=== PATIENT | male | born 1995 | race Hispanic/Latino ===

== ENCOUNTER 2023-02-19 07:17 | Emergency (ER) | payer SELFPAY ==
[2023-02-19 08:00] LABS: Hematocrit 47.1 % (39.6-49.0); Lymphocytes % 27.1 % (15.3-44.8); MCV 87.5 fL (80-100); MPV 10.1 fL (7.6-11.3); Platelets 230 thou/uL (152-406); RBC Red Blood Cell Count 5.38 M/uL (4.33-5.43)
[2023-02-19] MEDS ORDERED: NA CHLORIDE 0.9% 1,000 ML ONE (08:09)
[2023-02-19] MEDS ORDERED: KETOROLAC 30 MG/ML INJ ONE (08:09)
--- NOTE | 2023-02-19 08:13 | RAD REPORT ---
EXAM DESCRIPTION: CT - Abdomen Pelvis Wo Contrast - 02/19/2023 8:00 am CLINICAL HISTORY: Abdominal pain. Right flank pain COMPARISON: None TECHNIQUE: Computed axial tomography of the abdomen and pelvis was obtained. IV and oral contrast we re not requested. All CT scans are performed using dose optimization technique as appropriate and may include automated exposure control or mA/KV adjustment according to patient size. FINDINGS: The evaluation of solid organs, vessels and bowel is limited secondary to the lack of con trast administration. Cholecystectomy Tiny right renal calculus. Moderate right hydronephrosis. The proximal and mid right ureter are dilat ed. Mild periureteral stranding. Distal right ureter normal caliber. A ureteral calculus is not visua lized Fatty liver. The Spleen, pancreas, adrenals and left kidney appear grossly normal. The appendix is normal. There is no evidence of diverticulitis. Small umbilical hernia IMPRESSION: Tiny nonobstructing right renal calculus Moderate right hydronephrosis and dilatation of the proximal and mid right ureter. A ureteral calculu s is not visualized. Patient may have had a recently passed calculus. A ureteral lesion is another co nsideration but probably less likely. If the patient's symptoms do not resolve then a retrograde pyel ogram may be helpful
[2023-02-19 08:32] LABS: Bilirubin Total 0.3 mg/dL (0.2-1.0); Potassium 4.1 mEq/L (3.5-5.1)
--- NOTE | 2023-02-19 08:44 | ER ---
Nurse's Notes [facility] Name: Sg Gaspar Age: 27 yrs Sex: Male : 1995 Arrival Date: 02/19/2023 Time: 07:17 Bed 6 Private MD: Diagnosis: Right flank pain, ureterolithiasis resolved, right hydronephrosis Presentation: 02/19 07:36 Chief complaint: Patient states: right low back pain radiating to RLQ x 2 days ago. Pt aa5 also reports vomiting, denies diarrhea, reports decreased urination. Coronavirus screen: vomiting. Ebola Screen: Patient denies travel to an Ebola-affected area in the 21 days before illness onset. Initial Sepsis Screen: Does the patient meet any 2 criteria? No. Patient's initial sepsis screen is negative. Does the patient have a suspected source of infection? No. Patient's initial sepsis screen is negative. Risk Assessment: Do you want to hurt yourself or someone else? Patient reports no desire to harm self or others. Onset of symptoms was February 2023. 07:36 Acuity: ANGIE 3 aa5 07:36 Method Of Arrival: Ambulatory aa5 Historical: - Allergies: 07:38 No Known Allergies; aa5 - PMHx: 07:38 None; aa5 - PSHx: 07:38 Cholecystectomy; aa5 - Immunization history:: Flu vaccine is up to date. - Social history:: Smoking status: Patient denies any tobacco usage or history of. Screenin:41 [facility] ED Fall Risk Assessment (Adult) History of falling in the last 3 months, rs5 including since admission No falls in past 3 months (0 pts) Confusion or Disorientation No (0 pts) Intoxicated or Sedated No (0 pts) Impaired Gait No (0 pts) Mobility Assist Device Used No (0 pt) Altered Elimination No (0 pt) Score/Fall Risk Level 0 - 2 = Low Risk Oriented to surroundings, Maintained a safe environment. Abuse screen: Denies threats or abuse. Nutritional screening: No deficits noted. Tuberculosis screening: No symptoms or risk factors identified. Assessment: 07:40 General: Appears in no apparent distress. comfortable, Behavior is calm, cooperative. rs5 Pain: Complains of pain in right flank Pain radiates to pelvis Pain currently is 8 out of 10 on a pain scale. Quality of pain is described as aching, sharp, Pain began 2-3 days ago. Is continuous, Noted to be grimacing. Neuro: Level of Consciousness is awake, alert, obeys commands, Oriented to person, place, time, situation. Cardiovascular: Heart tones S1 S2 present Rhythm is regular. 07:40 Respiratory: Airway is patent Respiratory effort is even, unlabored, Respiratory rs5 pattern is regular, symmetrical, Breath sounds are clear bilaterally. GI: Abdomen is round non-distended, Bowel sounds present X 4 quads. Abd is soft and non tender X 4 quads. : No signs and/or symptoms were reported regarding the genitourinary system. EENT: No signs and/or symptoms were reported regarding the EENT system. Derm: Skin is intact, Skin is dry, Skin is normal, Skin temperature is warm. Musculoskeletal: Range of motion: intact in all extremities. 08:15 Pain: Complains of pain in right flank Pain does not radiate. Pain currently is 2 out rs5 of 10 on a pain scale. Quality of pain is described as aching, Is continuous. 08:30 Pain: Complains of pain in right flank Pain does not radiate. Pain currently is 8 out rs5 of 10 on a pain scale. Quality of pain is described as aching, Provider notified pt is experiencing pain. 08:50 Reassessment: To bedside for med adm, provider at bedside. rs5 09:10 Reassessment: Patient and/or family updated on plan of care and expected duration. Pain rs5 level reassessed. Patient is alert, oriented x 3, equal unlabored respirations, skin warm/dry/pink. Patient denies pain at this time. Vital Signs: 07:36 BP 162 / 103; Pulse 74; Resp 18 S; Temp 97.7(TE); Pulse Ox 100% on R/A; Weight 81.65 kg aa5 (R); Height 5 ft. 0 in. (R); 07:45 BP 125 / 79; Pulse 70; Resp 17; Temp 97.8(O); Pulse Ox 99% on R/A; rs5 09:02 BP 130 / 82; Pulse 72; Resp 16; Temp 97.9(O); Pulse Ox 99% on R/A; rs5 07:36 Body Mass Index 35.15 (81.65 kg, 152.4 cm) aa5 ED Course: 07:20 Patient arrived in ED. im 07:30 Leonardo Rogers MD is Attending Physician. sp3 07:36 Arm band placed on. aa5 07:38 Triage completed. aa5 07:41 Patient has correct armband on for positive identification. Bed in low position. Side rs5 rails up X2. Adult w/ patient. 07:45 Juliann Parmar, ANGLE is Primary Nurse. kc6 08:00 Inserted saline lock: 20 gauge in right antecubital area, using aseptic technique. rs5 Blood collected. 08:01 CT Abd/Pelvis - Without Contrast In Process Unspecified. EDMS 08:11 Scar Veras, ANGLE is Primary Nurse. rs5 08:42 Freddy Estes MD is Referral Physician. sp3 09:01 No provider procedures requiring assistance completed. IV discontinued, intact, rs5 bleeding controlled, No redness/swelling at site. Pressure dressing applied. Administered Medications: 07:55 Drug: NS 0.9% IV 1000 ml IV at 1 bolus Per protocol; 1000 mL bolus Route: IV; Rate: 1 rs5 bolus; Site: right antecubital; 08:10 Follow up: Response: No adverse reaction rs5 07:55 Drug: TORadol - Ketorolac IVP 30 mg IVP once Route: IVP; Site: right antecubital; rs5 08:15 Follow up: Response: No adverse reaction; Pain is decreased rs5 08:51 Drug: HYDROmorphone IVP 1 mg IVP once Route: IVP; Site: right antecubital; rs5 09:10 Follow up: Response: No adverse reaction; Pain is decreased rs5 08:51 Drug: Ondansetron IVP 4 mg IVP once; over 2 minutes Route: IVP; Site: right antecubital;rs5 09:10 Follow up: Response: No adverse reaction rs5 Medication: 08:17 VIS not applicable for this client. rs5 Outcome: 08:43 Discharge ordered by . sp3 09:01 Discharged to home ambulatory, with family, rs5 09:01 Condition: stable 09:01 Discharge instructions given to patient, family, 09:08 Patient left the ED. rs5 Signatures: Dispatcher [employer] EDAL Zuri Jasmine RN RN aa5 Leonardo Rogers MD MD sp3 Juliann Parmar RN RN kc6 Scar Veras RN RN rs5 Pilar Naidu Corrections: (The following items were deleted from the chart) 08:08 07:36 BP 162 / 103; Pulse 74bpm; Resp 18bpm; Spontaneous; Pulse Ox 100% RA; Temp 97.7F aa5 Temporal; 81.65 kg Reported; Height 5 ft. 3 in. Reported; BMI: 31.8; aa5 08:16 08:12 General: Appears in no apparent distress. comfortable, Behavior is calm, rs5 cooperative, rs5 08:16 08:12 Pain: Complains of pain in right flank Pain radiates to pelvis Pain currently is rs5 8 out of 10 on a pain scale. Quality of pain is described as aching, sharp, Pain began 2-3 days ago. Is continuous, Noted to be grimacing, rs5 08:16 08:12 Neuro: Level of Consciousness is awake, alert, obeys commands, Oriented to rs5 person, place, time, situation, rs5 08:16 08:12 Cardiovascular: Heart tones S1 S2 present Rhythm is regular rs5 rs5 14:59 09:10 Reassessment: Patient and/or family updated on plan of care and expected rs5 duration. Pain level reassessed. Patient is alert, oriented x 3, equal unlabored respirations, skin warm/dry/pink. rs5
--- NOTE | 2023-02-19 08:44 | EDPHYS ---
Physician Documentation [facility] Name: Sg Gaspar Age: 27 yrs Sex: Male : 1995 Arrival Date: 02/19/2023 Time: 07:17 Bed 6 Private MD: ED Physician Leonardo Rogers HPI: 02/19 07:53 27-year-old male with a history of kidney stones with last one being 2 years ago now sp3 presents with right-sided flank pain x24 hours without any other symptoms. He denies fever, anterior-abdominal pain, left-sided pain, gross hematuria, dysuria, urinary frequency, or any other signs or symptoms on ROS at this time. Pain is described as cramping in nature that comes and goes.. Historical: - Allergies: 07:38 No Known Allergies; aa5 - PMHx: 07:38 None; aa5 - PSHx: 07:38 Cholecystectomy; aa5 - Immunization history:: Flu vaccine is up to date. - Social history:: Smoking status: Patient denies any tobacco usage or history of. ROS: 07:55 Constitutional: Negative for fever, chills, and weight loss, Eyes: Negative for injury, sp3 pain, redness, and discharge, Neck: Negative for injury, pain, and swelling, Cardiovascular: Negative for chest pain, palpitations, and edema, Respiratory: Negative for shortness of breath, cough, wheezing, and pleuritic chest pain, MS/Extremity: Negative for injury and deformity, Neuro: Negative for headache, weakness, numbness, tingling, and seizure, Psych: Negative for depression, anxiety, suicide ideation, homicidal ideation, and hallucinations, Allergy/Immunology: Negative for hives, rash, and allergies, Endocrine: Negative for neck swelling, polydipsia, polyuria, polyphagia, and marked weight changes, Hematologic/Lymphatic: Negative for swollen nodes, abnormal bleeding, and unusual bruising, 07:55 All other systems are negative, Exam: 07:55 Constitutional: This is a well developed, well nourished patient who is awake, alert, sp3 and in no acute distress. Head/Face: Normocephalic, atraumatic. Eyes: Pupils equal round and reactive to light, extra-ocular motions intact. Lids and lashes normal. Conjunctiva and sclera are non-icteric and not injected. Cornea within normal limits. Periorbital areas with no swelling, redness, or edema. Neck: Trachea midline, no thyromegaly or masses palpated, and no cervical lymphadenopathy. Supple, full range of motion without nuchal rigidity, or vertebral point tenderness. No Meningismus. Chest/axilla: Normal chest wall appearance and motion. Nontender with no deformity. No lesions are appreciated. Cardiovascular: Regular rate and rhythm with a normal S1 and S2. No gallops, murmurs, or rubs. Normal PMI, no JVD. No pulse deficits. Respiratory: Lungs have equal breath sounds bilaterally, clear to auscultation and percussion. No rales, rhonchi or wheezes noted. No increased work of breathing, no retractions or nasal flaring. Skin: Warm, dry with normal turgor. Normal color with no rashes, no lesions, and no evidence of cellulitis. MS/ Extremity: Pulses equal, no cyanosis. Neurovascular intact. Full, normal range of motion. Neuro: Awake and alert, GCS 15, oriented to person, place, time, and situation. Cranial nerves II-XII grossly intact. Motor strength 5/5 in all extremities. Sensory grossly intact. Cerebellar exam normal. Normal gait. Psych: Awake, alert, with orientation to person, place and time. Behavior, mood, and affect are within normal limits. 07:55 Abdomen/GI: Right-sided flank pain and CVA tenderness noted. No anterior pain on palpation. No rebound or guarding or peritoneal signs. Nonsurgical abdomen noted., Vital Signs: 07:36 BP 162 / 103; Pulse 74; Resp 18 S; Temp 97.7(TE); Pulse Ox 100% on R/A; Weight 81.65 kg aa5 (R); Height 5 ft. 0 in. (R); 07:45 BP 125 / 79; Pulse 70; Resp 17; Temp 97.8(O); Pulse Ox 99% on R/A; rs5 09:02 BP 130 / 82; Pulse 72; Resp 16; Temp 97.9(O); Pulse Ox 99% on R/A; rs5 07:36 Body Mass Index 35.15 (81.65 kg, 152.4 cm) aa5 MDM: 07:39 Patient medically screened. sp3 07:56 Data reviewed: vital signs, nurses notes, lab test result(s), radiologic studies. ED sp3 course: 27-year-old male with right-sided flank pain. Differential diagnosis includes ureterolithiasis, UTI, and to a lesser degree appendicitis or intra-abdominal pathology. I am not highly suspicious for aortic pathology, sepsis, shock or any other critical illness at this time. Work-up will include CT scan of the abdomen pelvis noncontrast in a stone protocol, laboratory values, urine analysis and ketorolac IV for pain control coupled with IV fluids.. 08:38 ED course: Patient has evidence of recently passed kidney stone on the right side sp3 consistent with clinical presentation. Mid ureteral dilatation is still present. Patient's flank pain is still present but improving. We will give 1 dose of narcotic pain medicine prior to discharge. Patient will be discharged on diclofenac p.o. and urology follow-up. Liver function tests were also elevated and I have counseled patient on decreasing alcohol usage with complete cessation for the next 6 months. Patient acknowledged and will follow-up with his doctor as well.. 02/19 07:49 Order name: CBC with Diff; Complete Time: 08:17 sp3 02/19 07:49 Order name: CMP; Complete Time: 08:33 sp3 02/19 07:49 Order name: Lipase; Complete Time: 08:33 sp3 02/19 07:49 Order name: CT Abd/Pelvis - Without Contrast; Complete Time: 08:17 sp3 02/19 07:49 Order name: IV Saline Lock; Complete Time: 08:11 sp3 02/19 07:49 Order name: Labs collected and sent; Complete Time: 08:11 sp3 Administered Medications: 07:55 Drug: NS 0.9% IV 1000 ml IV at 1 bolus Per protocol; 1000 mL bolus Route: IV; Rate: 1 rs5 bolus; Site: right antecubital; 08:10 Follow up: Response: No adverse reaction rs5 07:55 Drug: TORadol - Ketorolac IVP 30 mg IVP once Route: IVP; Site: right antecubital; rs5 08:15 Follow up: Response: No adverse reaction; Pain is decreased rs5 08:51 Drug: HYDROmorphone IVP 1 mg IVP once Route: IVP; Site: right antecubital; rs5 09:10 Follow up: Response: No adverse reaction; Pain is decreased rs5 08:51 Drug: Ondansetron IVP 4 mg IVP once; over 2 minutes Route: IVP; Site: right antecubital;rs5 09:10 Follow up: Response: No adverse reaction rs5 Disposition Summary: 02/19/23 08:43 Discharge Ordered Notes: Location: Home sp3 Condition: Stable sp3 Diagnosis - Right flank pain, ureterolithiasis resolved, right hydronephrosis sp3 Followup: sp3 - With: Freddy Estes MD - When: Upon discharge from the Emergency Department - Reason: Recheck today's complaints Discharge Instructions: - Discharge Summary Sheet sp3 - Kidney Stones sp3 Forms: - Medication Reconciliation Form sp3 - Thank You Letter sp3 - Antibiotic Education sp3 - Prescription Opioid Use sp3 - Patient Portal Instructions sp3 - Leadership Thank You Letter sp3 Prescriptions: - Diclofenac Sodium 75 mg Oral Tablet Sustained Release - take 1 tablet ORAL route 2 times per day; 30 tablet; Refills: 0, Product sp3 Selection Permitted Signatures: Dispatcher [employer] Zuri Najera, RN RN aa5 Leonardo Rogers MD MD sp3 Scar Veras RN RN rs5
[2023-02-19] MEDS ORDERED: HYDROMORPHONE HCL 1 MG/ML INJ ONE (09:06)
[2023-02-19] MEDS ORDERED: ONDANSETRON 4 MG/2 ML VIAL ONE (09:06)
[2023-02-19 09:23] VITALS: BP 125/79; TEMP 97.8; O2SAT 99
== END 2023-02-19 09:08 | disposition home or self-care (01) ==
LOC: ER 07:17
DX: N13.2 Hydronephrosis with renal and ureteral calculous obstruction (principal); Z87.442 Personal history of urinary calculi
CPT/HCPCS: 36415; 74176; 80053; 83690; 85025; 96374; 96375; 99284; J1170; J2405; J7030